=== PATIENT | male | born 1970 | race Caucasian/White ===

== ENCOUNTER → 2020-12-03 | Outpatient (CLI) | payer OTHER ==
--- NOTE | 2020-12-04 00:30 | REP ---
INDICATION: PAIN IN RIGHT HIP COMPARISON: None. TECHNIQUE: AP and frog-lateral views of the right hip FINDINGS: Generalized age-related changes include increased sclerosis to the acetabulum with mild joint space narrowing and subtle marginal spurring. No evidence for acute or healed injury. Thinned linear metallic foreign body measuring approximately 2.4 cm in length consistent foreign body such as needle in the overlying soft tissue at the level of the femoral head/neck. IMPRESSION: Mild generalized age-related changes. Foreign body in the soft tissue overlying the femoral head/neck. <Electronically signed by Felix Conde > 12/04/20 0026
--- NOTE | 2020-12-04 00:35 | REP ---
INDICATION: PAIN IN RIGHT HIP. COMPARISON: None. TECHNIQUE: Single AP view of the pelvis FINDINGS: Mild/moderate degenerative changes at the right hip include increased sclerosis to the acetabular roof mild joint space narrowing and early marginal spurring. Left hip replacement. Linear foreign body overlies the right femoral head/neck. IMPRESSION: Mild/moderate degenerative changes to the right hip. <Electronically signed by Felix Conde > 12/04/20 0031
== END ==
LOC: M SOG 13:42
PROVIDERS: ATTEND Orthopaedic Surgery Adult Reconstructive Orthopaedic Surgery
DX: M25.551 Pain in right hip (principal); M16.11 Unilateral primary osteoarthritis, right hip

== ENCOUNTER → 2020-12-05 | Outpatient (CLI) | payer OTHER, SELFPAY | LOC: M LABSMTC 13:08 | PROVIDERS: ATTEND Anesthesiology | DX: Z01.812 Encounter for preprocedural laboratory examination (principal); Z20.822 Contact with and (suspected) exposure to COVID-19 ==

== ENCOUNTER 2021-01-19 13:37 | Outpatient (RCR) | payer OTHER | END 2021-01-20 | LOC: M PT 13:37 | PROVIDERS: ATTEND Orthopaedic Surgery Adult Reconstructive Orthopaedic Surgery | DX: Z01.818 Encounter for other preprocedural examination (principal) ==

== ENCOUNTER → 2021-02-10 | Outpatient (CLI) | payer OTHER ==
--- NOTE | 2021-02-10 14:31 | REP ---
INDICATION: RT HIP OA. COMPARISON: Radiographs 12/03/2020, MRI 12/18/2020. TECHNIQUE: Axial CT pelvis and knees with sagittal and coronal reconstruction images, per [facility] protocol. FINDINGS: The pelvis and hips demonstrate no evidence of fracture or dislocation. There is moderate degenerative disc change at L4-5 and L5-S1. Left total hip arthroplasty is in good position with no adjacent surrounding osseous abnormality. There is heterotopic calcification in the soft tissues along the superior aspect of the greater trochanter. Moderate degenerative joint disease is seen at the right hip joint with subchondral sclerosis and cystic change. There is minor medial joint space narrowing at the knee joints bilaterally. Mild patellofemoral compartment narrowing bilaterally as well. IMPRESSION: Degenerative changes as above. <Electronically signed by Stephon Moya > 02/10/21 [id number]
== END ==
LOC: M RAD 13:07
PROVIDERS: ATTEND Orthopaedic Surgery Adult Reconstructive Orthopaedic Surgery
DX: M16.11 Unilateral primary osteoarthritis, right hip (principal)

== ENCOUNTER → 2021-02-19 | Outpatient (CLI) | payer OTHER | LOC: M LABSMTC 09:34 | PROVIDERS: ATTEND Anesthesiology | DX: Z01.818 Encounter for other preprocedural examination (principal); Z11.52 Encounter for screening for COVID-19 ==

== ENCOUNTER 2021-02-24 09:05 | Inpatient (IN) | payer OTHER ==
[~2021-02-24] VITALS: Ht 177.8 cm; Wt 81.0 kg
[~2021-02-24 09:05] MED LIST: ACETAMINOPHEN 500 MG TAB PO ONE; LIDOCAINE 1% MDV 20ML VIAL SQ PRN; LR 1,000 ML IV ONE; NAPROXEN 250 MG TAB PO ONE; NS 1,000 ML IV ONE; PREGABALIN 25 MG CAP (LYRICA) PO ONE; ROPIVA 125MG/EPINEPH 0.25MG/CLONID 40MCG/KETOR 15MG IN NS 50ML SYRINGE PA ONE; TRANEXAMIC ACID INJection 1,000 MG in NS 50 ML IV ONE; ceFAZolin SOD 2 GM in IV 1 EA IV ONE; dexameTHASONE 4 MG/ML 1ML VIAL (J1100 PER 1MG) IV ONE
[2021-02-24] MEDS ORDERED: fentaNYL 100 MCG/2 ML INJECTION (J3010) As Ordered ONE ×2 (09:13→13:08)
[2021-02-24] MEDS ORDERED: dexameTHASONE 4 MG/ML 1ML VIAL (J1100 PER 1MG) As Ordered ONE ×2 (09:13→11:19)
[2021-02-24] MEDS ORDERED: propofoL 200 MG/20 ML VIAL As Ordered ONE ×5 (09:13→13:47)
[2021-02-24] MEDS ORDERED: MIDAZOLAM INJ 2MG/2ML VIAL (J2250 PER 1MG) As Ordered ONE ×2 (09:13→11:59)
[2021-02-24] MEDS ORDERED: LIDOCAINE 2% 100MG/5ML SDV (FOR ANES.) As Ordered ONE (09:13)
[2021-02-24] MEDS ORDERED: ONDANSETRON 4MG/2ML VIAL As Ordered ONE (09:14)
[2021-02-24] MEDS ORDERED: ROCURONIUM BROMIDE 50 MG/5 ML VIAL As Ordered ONE (09:14)
[2021-02-24] MEDS ORDERED: SUGAMMADEX SODIUM 500 MG/5 ML VIAL (BRIDION) As Ordered ONE (09:48)
[2021-02-24] MEDS ORDERED: TRANEXAMIC ACID 100 MG/ML 10ML VIAL As Ordered ONE (10:34)
[2021-02-24] MEDS ORDERED: ePHEDrine SULFATE 25 MG/5 ML(5MG/ML) SYRINGE As Ordered ONE (11:46)
[2021-02-24] MEDS ORDERED: METOCLOPRAMIDE INJ 10MG/2ML VIAL (J2765 PER 1) As Ordered ONE (12:42)
--- NOTE | 2021-02-24 15:02 | ROOPDOC ---
[facility] Report Of Operation Report of Operation DATE OF PROCEDURE: 02/24/21 PREPROCEDURE DIAGNOSES: Right hip cystic degeneration possible avascular necrosis POSTPROCEDURE DIAGNOSES: Right hip cystic degeneration, possible avascular PROCEDURE PERFORMED: [facility] right total hip SURGEON: Kathleen Magaña MD ICD 10 modifier 22:50% more time and 50% more physical effort were utilized during this procedure as a result of the patient's musculature and the fact that he did not have any significant degenerative changes and there was difficulty with removal and dislocation of the hip. The patient also had additional reaming procedures performed to the femoral canal as the broach was getting caught up distally leading to toggling of the stem. CARBURETOR REPAIRER: Anjelica Antonio PA-C ANESTHESIA: Spinal. ESTIMATED BLOOD LOSS: Approximately 250 mL. COMPLICATIONS: No known complications associated with surgery. Patient was coughing during the procedure and anesthesia did mention some concern about possible aspiration. This was relayed to the hospitalist service for their admission REMARKS: Patient was seen in the preoperative area and the right lower extremity marked. Prior to surgical intervention the [facility] plan was reviewed and adjust ed.. FINDINGS: Right hip with no significant osteoarthritic change. Procedure done for large cystic area in the subchondral bone seen on MRI SPECIMENS REMOVED: None PROCEDURE NOTE: Components: Mcalister Trident 2 titanium acetabular shell size 52 mm Accolade 2 size # 4 femoral stem MDM liner 28 mm inner diameter Ceramic femoral head 28 mm standard 0 DESCRIPTION OF PROCEDURE: The patient was brought to the operating room and a surgical pause was carried out. The patient was then positioned for a spinal anesthetic which was carried out. The patient was then positioned in the left lateral decubitus position for the right total hip arthroplasty. Appropriate padding was carried out including an axillary roll. Patient was secured with the Stulberg positioning system. The patient and underwent a chlorhexidine wash of the right lower extremity followed by 2 times alcohol wash and then 1 hydrogen peroxide wash. 2 standard sterile chlorhexidine preps were carried out utilizing the [facility]. The patient was then prepped and draped in the standard fashion. A surgical pause was carried out and a surgical safety checklist was completed. The modified Aleman approach was utilized for the lateral skin incision. Skin and subcutaneous tissues were incised down to the fascia. The fascia was split. This was retracted to expose the abductors. The abductors and capsule were elevated using electrocautery in a single layer. Hohmann retractors were placed to help with visualization. Once the proximal femur had been skeletonized the soft tissue, the iliac crest array was placed using 3 pins for the [facility] system. The checkpoint for the greater trochanter was then placed. The right lower extremity was then registered. The hip was dislocated. As a result of the patient's musculature and the fact that he did not have any significant degenerative change this was a difficult process and relied on the assistance of the Maravilla to help sever the ligamentum teres and lever the femoral head out. The labrum was removed with electrocautery and other soft tissues to help with exposure. Electrocautery was used for hemostasis throughout the procedure. The patient did have several bleeders that had to be cauterized which added several minutes to the case. The acetabular checkpoint was then placed. The pelvis and acetabular cup was then registered using the Clickyreserva robot. The robot was then brought in for appropriate reaming as per the preoperative plan. A 52 mm cup was reamed. Reaming was difficult due to the good quality of the patient's bone given his young age and no significant degenerative change some of the reamings were placed in the fovea of the acetabulum for autologous bone grafting. Additional soft tissue was removed from the acetabulum using electrocautery. The Clickyreserva robot was then used to impact the cup at the preplanned version and abduction angle. This was seated appropriately. The dual mobility liner was then impacted without difficulty and check to ensure it was secured. The patient then had the leg placed in the bag with a femoral elevator and a Rodolfo elevating the proximal femur. Electrocautery was used to free up soft tissue at the posterior lateral aspect of the femur. A rongeur and then a box osteotome were used to open up the femoral canal followed by the canal finder. Broaching then occurred up to a size 4. This was toggling of bed so reaming with the secure fit 9/10 reamer was sequentially performed. The 4 was then placed without any toggle this was trialed with the standard head and neck and found to have appropriate tensioning, leg length and offset as well as a good stable range of motion. This was trialed and the leg was taken through stable range of motion without any risk of dislocation being noted. The final components were assembled. The stem was inserted. The trunnion was cleansed with normal sterile saline and dried and then the dual mobility had was impacted. This was then reduced and taken through a full stable range of motion. Wound was irrigated and tranexamic acid was allowed to sit for 3 minutes. The wound also had Betadine soaking in it. The layered closure then occurred with #1 Vicryl closure deep followed by #1 Vicryl and strata fix for the abductors and then #1 Vicryl and strata fix for the fascia. The subcutaneous layer was closed with interrupted #1 Vicryl followed by running 2.0 Vicryl followed by three-point 0 Monocryl. Normal sterile saline and Betadine washes were carried out in between layers. The stab wounds for the iliac crest array were irrigated with normal sterile saline and painted with Betadine before closure with three-point 0 Monocryl. The wound was sealed with Steri-Strips followed by Telfa and Tegaderm for the iliac crest dressing and a Mepilex dressing for the Aleman incision. The patient was taken to the recovery room stable with no known complications The patient will be admitted to the hospitalist service. Anticipate discharge p ostop day 1 if there are no issues. Physical therapy to mobilize. Discharge Instructions Total Hip Arthroplasty 1. Pain: You may take oxycodone as prescribed for pain. Supplement with Naproxen as needed. Ice pack to operative hip as tolerated. 2. Wound care: Remove lateral head dressing on postop day 7. The iliac crest pin site dressing can be changed every 3 days with Telfa and Tegaderm. call [phone] with any questions or concerns. Hygiene: The patient may shower. No tub baths. Check dressing seal prior to bathing. 3. Activity: WBAT right lower extremity. Front wheeled walker versus crutches for ambulation. Fall precautions. Anterolateral hip precautions (NO figure of 4/crossing legs, combined external rotation/extension, combined internal rotatio n/abduction). 4. Driving: No driving until cleared by your surgeon. Do not drive if taking narcotic pain medications as these may make you drowsy. 5. DVT Prophylaxis: Continue taking aspirin 81 mg p.o. twice daily as prescribed for the prevention of blood clots. Ankle pumps every 1 hour while awake. KAROLINA hose at all times for 1 month after surgery. May remove for hygiene and wound c are. 6. Placement: Plan is to discharge patient to home with home health including nursing and physical therapy. 7. Surgeon Follow-up: The patient is scheduled to be seen in Dr. Magaña's office 2 weeks post op with xrays. 8. Primary care Follow-up: Please see your primary care provider in the next 2 to 5 weeks for general medical re-evaluation and medication review. 9. Labs: CBC without differential and BMP to be drawn on postop day 3 with results to PCP and please fax to [phone]. 10. Please contact [facility] if you have any questions or concerns at [phone]. KATHLEEN MAGAÑA MD Feb 24, 2021 15:02
--- NOTE | 2021-02-24 15:05 | REP ---
INDICATION: POST OP IN PACU/ LOW SET AP PELVIS. RT HIP PROSTHESIS Physical examination suggesting congenital hip dysplasia. COMPARISON: None. TECHNIQUE: Single AP view of the pelvis. FINDINGS: Limited evaluation of the pelvis demonstrates postsurgical changes involving the right hip with satisfactory appearance to the prosthesis and overlying soft tissue swelling and subcutaneous emphysema. Left hip demonstrates stable old prosthesis. IMPRESSION: Status post right hip replacement. <Electronically signed by Felix Conde > 02/24/21 [id number]
[2021-02-24] MEDS ORDERED: LR 1,000 ML IV SCH ×2 (15:10→16:05)
[2021-02-24] MEDS ORDERED: fentaNYL 100 MCG/2 ML INJECTION (J3010) IV PRN (15:10)
[2021-02-24] MEDS ORDERED: ONDANSETRON 4MG/2ML VIAL IV PRN ×2 (15:10→15:20)
[2021-02-24] MEDS: oxyCODONE 5MG TAB PO PRN ×2 (15:14→15:47)
[2021-02-24] MEDS ORDERED: SENNA 8.6 MG TAB (SENOKOT) PO PRN (15:20)
[2021-02-24] MEDS ORDERED: oxyCODONE 5MG TAB PO PRN ×2 (15:20)
[2021-02-24] MEDS ORDERED: CHLORASEPTIC SPRAY MT PRN (15:45)
--- NOTE | 2021-02-24 15:59 | HPEPDOC ---
General Date of Admission February 24, 2021 Date of Service: Feb 24, 2021 Chief Complaint The patient is a 50-year-old male admitted with a reason for visit of Right Hip Osteoarthritis. History of Present Illness Mr. Licea is a 50-year-old male with hemochromatosis who is here for elective right hip total arthroplasty for right hip osteonecrosis and osteoarthritis. Patient was seen postoperatively. Prior to surgery, he denied any fever or chills, chest pain, dyspnea, abdominal pain, diarrhea, or dysuria. He also denied any sore throat. During induction, patient had nausea and vomiting. During operation, he had coughing. Patient was seen in the PACU post operatively. He is alert and denies any nausea or vomiting. He was surprised to hear that he vomited prior. Only other complaint was sore throat. Patient is doing well on room air. Patient will be admitted for postop monitoring and physical therapy. Home Medications No Active Prescriptions or Reported Meds Allergies Coded Allergies: No Known Allergies (Unverified , 12/02/20) Past Medical History Medical History 1. Hemochromatosis Surgical History 1. Rhinoplasty 2. Shrapnel metal removal 3. Liver biopsy x2 4. Job reconstructive surgery 5. Laser eye surgery 6. Left hip surgery Family History Father: at the age of 65, heart attack Mother: To patient's knowledge, she is healthy without medical history Brother: History of metastatic cancer to bone, at the age of 57 Social History * Smoker: Denies Alcohol: Denies Drugs: denies A-FIB/CHADSVASC A-FIB History Current/History of A-Fib/PAF?: No Review of Systems Constitutional: Denies: Chills, Fever Eyes: Denies: Vision change ENT: Reports: Sore Throat (Postop) Skin: Denies: Rash Pulmonary: Denies: Dyspnea Cardiovascular: Denies: Chest Pain Gastrointestinal: Denies: Nausea, Abdominal Pain, Diarrhea Genitourinary: Denies: Dysuria Hematologic: Denies: Bruising Psych: Denies: Anxiety, Depression Physical Examination General Exam: Positive: Alert, Cooperative Eye Exam: Positive: EOMI; Negative: Sclera icteric ENT Exam: Positive: Atraumatic Neck Exam: Positive: Supple Chest Exam: Positive: Clear to auscultation Heart Exam: Positive: Rate Normal, Regular Rhythm Abdomen Exam: Positive: Normal bowel sounds, Soft; Negative: Tenderness Extremity Exam: Negative: Edema Neuro Exam: Positive: Cranial Nerves 3-12 NL Psych Exam: Positive: Mental status NL, Mood NL Vital Signs Vital Signs Date Time Temp Pulse Resp B/P (MAP) Pulse Ox O2 Delivery O2 Flow Rate FiO2 02/24/21 15:47 18 02/24/21 15:43 64 121/73 (89) 96 Room Air 02/24/21 15:17 97.5 Assessment/Plan Mr. Licea is a 50-year-old male with hemochromatosis who is here for elective right hip total arthroplasty for right hip osteonecrosis and osteoarthritis. Dr. Hairston performed the procedure on 02/24/2021. Prior to operation, patient had nausea and vomiting. Postoperatively, denies any nausea. He is doing well at room air. Plan / VTE VTE Prophylaxis Ordered?: Yes Plan Plan 1. Right hip osteoarthritis and right hip osteonecrosis Status post total right hip arthroplasty DVT prophylaxis per orthopedic surgery PT/OT ordered 2. Hemochromatosis We will check CBC 3. DVT prophylaxis Per orthopedic surgery, aspirin 81 mg twice daily Disposition: Pending physical therapy TANO MOSELEY DO Feb 24, 2021 15:59
[2021-02-24 16:10] VITALS: BP 108/68
[2021-02-24 16:37] LABS: HEMATOCRIT 35.4 % (42.0-52.0); HEMOGLOBIN 12.4 g/dl (13.5-17.5); MEAN CORPUSCULAR HEMOGLOBIN 32.4 pg (27.0-33.0); MEAN CORPUSCULAR VOLUME 92.4 fl (80.0-96.0); PLATELET COUNT, AUTOMATED 188 10^3/uL (150-450); RED BLOOD COUNT 3.83 10^6/uL (4.30-6.10); WHITE BLOOD COUNT 13.5 10^3/uL (4.0-10.0)
[2021-02-24 16:40] VITALS: BP 105/69
[2021-02-24 16:47] LABS: INR 1.09; PROTHROMBIN TIME 14.5 SECONDS (12.7-14.5)
[2021-02-24 17:13] LABS: ALBUMIN 3.3 GM/DL (3.2-5.2); ALT/SGPT 72 U/L (12-78); BILIRUBIN,TOTAL 0.5 MG/DL (0.2-1.0); BLOOD UREA NITROGEN 12 MG/DL (7-18); CALCIUM LEVEL 8.9 MG/DL (8.5-10.1); CARBON DIOXIDE LEVEL 25 MEQ/L (21-32); CHLORIDE LEVEL 105 MEQ/L (98-107); CREATININE FOR GFR 0.98 MG/DL (0.70-1.30); GLOMERULAR FILTRATION RATE > 60.0 (>56); GLUCOSE, FASTING 179 MG/DL (70-100); POTASSIUM SERUM 3.8 MEQ/L (3.5-5.1); SODIUM LEVEL 137 MEQ/L (136-145); TOTAL PROTEIN 6.1 GM/DL (6.4-8.2)
[2021-02-24 18:36] VITALS: BP 135/74
[2021-02-24] MEDS: ceFAZolin SOD 2 GM in IV 1 EA IV SCH (18:39)
[2021-02-24] MEDS: traMADol 50 MG TAB PO PRN (18:39)
[2021-02-24] MEDS: NAPROXEN 250 MG TAB PO SCH (20:50)
[2021-02-24] MEDS: DOCUSATE SODIUM 100MG CAPSULE PO SCH (20:50)
[2021-02-24 21:00] VITALS: O2SAT 95
[2021-02-24 22:00] VITALS: BP 124/66
[2021-02-25 02:00] VITALS: BP 94/66
[2021-02-25] MEDS: ceFAZolin SOD 2 GM in IV 1 EA IV SCH (03:14)
[2021-02-25 06:00] VITALS: BP 115/67
[2021-02-25] MEDS: traMADol 50 MG TAB PO PRN (06:38)
[2021-02-25 07:10] LABS: BASO % 0.2 % (0.0-1.0); HEMOGLOBIN 11.9 g/dl (13.5-17.5); LYMPH # 1.4 10^3/uL (1.5-5.0); LYMPH % 8.6 % (24.0-44.0); MEAN CORPUSCULAR HEMOGLOBIN 32.4 pg (27.0-33.0); MEAN CORPUSCULAR VOLUME 92.6 fl (80.0-96.0); MONO # 1.4 10^3/uL (0.0-0.8); MONO % 8.6 % (2.0-8.0); NEUTROPHILS # 13.3 10^3/uL (1.5-8.5); NEUTROPHILS % 82.2 % (36.0-66.0); PLATELET COUNT, AUTOMATED 212 10^3/uL (150-450); RED BLOOD COUNT 3.67 10^6/uL (4.30-6.10); WHITE BLOOD COUNT 16.1 10^3/uL (4.0-10.0)
[2021-02-25 07:44] LABS: BLOOD UREA NITROGEN 14 MG/DL (7-18); CALCIUM LEVEL 8.4 MG/DL (8.5-10.1); CARBON DIOXIDE LEVEL 23 MEQ/L (21-32); CHLORIDE LEVEL 108 MEQ/L (98-107); CREATININE FOR GFR 0.99 MG/DL (0.70-1.30); GLOMERULAR FILTRATION RATE > 60.0 (>56); GLUCOSE, FASTING 133 MG/DL (70-100); POTASSIUM SERUM 3.9 MEQ/L (3.5-5.1); SODIUM LEVEL 137 MEQ/L (136-145)
[2021-02-25] MEDS ORDERED: FERROUS SULFATE 325MG TAB PO SCH (09:00)
[2021-02-25] MEDS ORDERED: ASPIRIN 81MG ENTERIC TABLET PO SCH (09:00)
[2021-02-25] MEDS ORDERED: ASCORBIC ACID 500 MG TAB PO SCH (09:00)
[2021-02-25] MEDS: DOCUSATE SODIUM 100MG CAPSULE PO SCH (09:39)
[2021-02-25] MEDS: NAPROXEN 250 MG TAB PO SCH (09:40)
[2021-02-25 10:00] VITALS: BP 121/81
[2021-02-25] MEDS ORDERED: OXYC-517 PO (10:07)
[2021-02-25] MEDS ORDERED: NAPR-849 PO (10:07)
[2021-02-25] MEDS ORDERED: TRAM50TA2 PO (10:07)
[2021-02-25] MEDS ORDERED: ASPI-551 PO (10:07)
[2021-02-25] MEDS ORDERED: DOCU100C16 PO (10:07)
[2021-02-25] MEDS ORDERED: ACET-683 PO (10:12)
--- NOTE | 2021-02-25 11:29 | IPNPDOC ---
Text Note Date of Service The patient was seen on 02/25/21. NOTE Postop day 1 for right total hip arthroplasty. Patient states that he is doing well. Denies any chest pain or shortness of breath. Denies any cough. Has a little bit of a sore throat. Pain is manageable to the right hip. He has been up and moving with limited weightbeari ng utilizing the walker. Right hip iliac crest and right hip arthrotomy dressing intact with no signs of staining or drainage. Grossly neurovascularly intact to light touch to the right foot. Moving toes foot and ankle and has palpable posterior tibial and dorsalis pedis pulses. X-ray imaging was independently ordered and reviewed by myself. This was done in the recovery room. This demonstrates right total hip arthroplasty prosthesis in good position without any obvious signs of complication subsidence or periprosthetic fracture. The patient states that the oxycodone pain medication is not helping that much. I have advised him that oxycodone is ordered. I have spoken to the nursing staff to ensure that he is switched to the oxycodone and has a prescription for oxycodone for pain medication upon discharge. Overall the patient is doing quite well. He will be seen by the hospitalist service and physical therapy. Anticipate discharge home today. Follow-up in 2 weeks in the clinic Discharge Instructions Total Hip Arthroplasty 1. Pain: You may take oxycodone as prescribed for pain. Supplement with Naproxen as needed. Ice pack to operative hip as tolerated. 2. Wound care: Remove dressing on postop day 7. Call [phone] with any questions or concerns. Hygiene: The patient may shower. No tub baths. Check dressing seal prior to bathing. 3. Activity: WBAT right lower extremity. Front wheeled walker versus crutches for ambulation. Fall precautions. Anterolateral hip precautions (NO figure of 4/crossing legs, combined external rotation/extension, combined internal rota tion/abduction). 4. Driving: No driving until cleared by your surgeon. Do not drive if taking narcotic pain medications as these may make you drowsy. 5. DVT Prophylaxis: Continue taking aspirin 81 mg p.o. twice daily as prescribed for the prevention of blood clots. Ankle pumps every 1 hour while awake. KAROLINA hose at all times for 1 month after surgery. May remove for hygiene and wound care. 6. Placement: Plan is to discharge patient to home with home health including nursing and physical therapy. 7. Surgeon Follow-up: The patient is scheduled to be seen in Dr. Magaña's office 2 weeks post op with xrays. 8. Primary care Follow-up: Please see your primary care provider in the next 2 to 5 weeks for general medical re-evaluation and medication review. 9. Labs: CBC without differential to be drawn on postop day 3 with results to PCP and please fax to [phone]. 10. Please contact [facility] if you have any questions or concerns at [phone]. VS,Fishbone, I+O VS, Fishbone, I+O Laboratory Tests 02/24/21 16:25 02/25/21 06:49 Vital Signs Date Time Temp Pulse Resp B/P (MAP) Pulse Ox O2 Delivery O2 Flow Rate FiO2 02/25/21 10:11 18 02/25/21 10:00 98.7 74 121/81 (94) 95 Room Air I&O- Last 24 Hours up to 6 AM 02/25/21 06:00 Intake Total 2755 ml Output Total 1400 ml Balance 1355 ml KATHLEEN MAGAÑA MD Feb 25, 2021 11:29
--- NOTE | 2021-02-25 19:17 | DS.PDOC ---
Discharge Summary General Date of Admission Feb 24, 2021 at 15:44 Date of Discharge Feb 25, 2021 Specialist/Consultants [facility] Orthopedic surgery, Dr. Hairston Discharge Summary PROCEDURES PERFORMED DURING STAY: [facility] right total hip by Dr. Hairston on 02/24/21 ADMITTING DIAGNOSES: 1. Right hip osteoarthritis, possibly avascular 2. Hematochromatosis DISCHARGE DIAGNOSES: 1. Right hip osteoarthritis, possibly avascular 2. Hematochromatosis COMPLICATIONS/CHIEF COMPLAINT: Right Hip Osteoarthritis. HISTORY OF PRESENT ILLNESS: Mr. Licea is a 50-year-old male with hemochromatosis who is here for elective right hip total arthroplasty for right hip osteonecrosis and osteoarthritis. Patient was seen postoperatively. Prior to surgery, he denied any fever or chills, chest pain, dyspnea, abdominal pain, diarrhea, or dysuria. He also denied any sore throat. During induction, patient had nausea and vomiting. During operation, he had coughing. Patient was seen in the PACU postoperatively. He is alert and denies any nausea or vomiting. He was surprised to hear that he vomited prior. Only other complaint was sore throat. Patient is doing well on room air. Patient will be admitted for postop monitoring and physical therapy. HOSPITAL COURSE: Patient did well overnight and cleared physical therapy this morning. Patient recovered faster than expected. He felt well and denied any chest pain or dyspnea. He felt ready for home and was subsequently discharged home. DISCHARGE MEDICATIONS: Please see below. ALLERGIES: Please see below. PHYSICAL EXAMINATION ON DISCHARGE: VITAL SIGNS: Please see below. GENERAL: Comfortable, in no apparent distress HEENT: Head normocephalic, atraumatic NECK: Supple CARDIOVASCULAR EXAMINATION: Regular rate and rhythm RESPIRATORY EXAMINATION: Lungs clear to auscultation bilaterally ABDOMINAL EXAMINATION: Soft, non-tender, normal bowel sounds EXTREMITIES: No pitting edema bilaterally SKIN: Warm and dry NEUROLOGICAL EXAMINATION: CN 3-12 grossly intact PSYCHIATRIC EXAMINATION: Normal mood and affect LABORATORY DATA: Please see below. IMAGING: Please see radiologist report PROGNOSIS: Good ACTIVITY: As tolerated. DIET: As tolerated DISCHARGE PLAN: Home DISPOSITION: 01 Home, Self-Care. DISCHARGE INSTRUCTIONS: 1. Follow up with PCP in 1 week 2. Follow up with general surgery in 2 week 3. Take aspirin 81mg BID for post operative DVT ppx ITEMS TO FOLLOWUP ON ON OUTPATIENT: 1. CBC DISCHARGE CONDITION: Stable Total time spent on discharge planning, discharge summary, and medication reconciliation: 35 minutes Vital Signs/I&Os Vital Signs Date Time Temp Pulse Resp B/P (MAP) Pulse Ox O2 Delivery O2 Flow Rate FiO2 02/25/21 10:11 18 02/25/21 10:00 98.7 74 121/81 (94) 95 Room Air I&O- Last 24 Hours up to 6 AM 02/25/21 06:00 Intake Total 2755 ml Output Total 1400 ml Balance 1355 ml Laboratory Data Labs 24H Laboratory Tests 2 02/25/21 06:49: Immature Granulocyte % (Auto) 0.4, Neutrophils (%) (Auto) 82.2H, Lymphocytes (%) (Auto) 8.6L, Monocytes (%) (Auto) 8.6H, Eosinophils (%) (Auto) 0.0, Basophils (%) (Auto) 0.2, Neutrophils # (Auto) 13.3H, Lymphocytes # (Auto) 1.4L, Monocytes # (Auto) 1.4H, Eosinophils # (Auto) 0.0, Basophils # (Auto) 0.0, Nucleated Red Blood Cells % (auto) 0.0, Anion Gap 6L, Glomerular Filtration Rate > 60.0, Calcium Level 8.4L CBC/BMP Laboratory Tests 02/25/21 06:49 Discharge Medications Scheduled Acetaminophen (Acetaminophen) 500 Mg Tablet, 1,000 MG PO TID Aspirin (Aspirin EC) 81 Mg Tablet.dr, 81 MG PO BID Docusate Sodium (Docusate Sodium) 100 Mg Capsule, 100 MG PO BID Scheduled PRN Oxycodone HCl (Oxycodone HCl) 5 Mg Tablet, 5 MG PO Q6HP PRN for MODERATE PAIN (PS 5-8) Tramadol HCl (Tramadol HCl) 50 Mg Tablet, 50 MG PO Q6HP PRN for MILD PAIN (PS 1- 4) Allergies Coded Allergies: No Known Allergies (Unverified , 12/02/20) TANO MOSELEY DO Feb 25, 2021 19:17
[2021-02-26] MEDS ORDERED: FLUBLOK(EGG FREE)(QUAD)INFLUENZA VACC 0.5ML SYRINGE 18YRS & OLDER IM ONE (09:00)
== END 2021-02-25 11:55 | disposition home health service (06) | DRG 470 ==
LOC: M SDC 09:05 → M MS5PR 15:44
PROVIDERS: ADMIT Internal Medicine; ATTEND Internal Medicine
PROC: 8E0Y0CZ Robotic Assisted Procedure of Lower Extremity, Open Approach (ICD-10-PCS; 2021-02-24)
PROC: 0SR903A Replacement of Right Hip Joint with Ceramic Synthetic Substitute, Uncemented, Open Approach (ICD-10-PCS; principal; 2021-02-24 10:45)
DX: M16.11 Unilateral primary osteoarthritis, right hip (principal); M87.851 Other osteonecrosis, right femur; M85.651 Other cyst of bone, right thigh; E83.119 Hemochromatosis, unspecified

== ENCOUNTER → 2021-03-01 | Outpatient (REF) | payer OTHER ==
[~2021-03-01] MED LIST changes: +ACET-683 PO; -ACETAMINOPHEN 500 MG TAB PO ONE; +ASPI-551 PO; +DOCU100C16 PO; -LIDOCAINE 1% MDV 20ML VIAL SQ PRN; -LR 1,000 ML IV ONE; +NAPR-849 PO; -NAPROXEN 250 MG TAB PO ONE; -NS 1,000 ML IV ONE; +OXYC-517 PO; -PREGABALIN 25 MG CAP (LYRICA) PO ONE; -ROPIVA 125MG/EPINEPH 0.25MG/CLONID 40MCG/KETOR 15MG IN NS 50ML SYRINGE PA ONE; +TRAM50TA2 PO; -TRANEXAMIC ACID INJection 1,000 MG in NS 50 ML IV ONE; -ceFAZolin SOD 2 GM in IV 1 EA IV ONE; -dexameTHASONE 4 MG/ML 1ML VIAL (J1100 PER 1MG) IV ONE
[2021-03-01 11:47] LABS: HEMATOCRIT 36.6 % (42.0-52.0); HEMOGLOBIN 12.6 g/dl (13.5-17.5); MEAN CORPUSCULAR HEMOGLOBIN 32.5 pg (27.0-33.0); MEAN CORPUSCULAR HGB CONC 34.4 g/dl (32.0-36.5); MEAN CORPUSCULAR VOLUME 94.3 fl (80.0-96.0); PLATELET COUNT, AUTOMATED 250 10^3/uL (150-450); RED BLOOD COUNT 3.88 10^6/uL (4.30-6.10)
[2021-03-01 12:10] LABS: BLOOD UREA NITROGEN 12 MG/DL (7-18); CALCIUM LEVEL 8.7 MG/DL (8.5-10.1); CARBON DIOXIDE LEVEL 30 MEQ/L (21-32); CHLORIDE LEVEL 99 MEQ/L (98-107); CREATININE FOR GFR 0.88 MG/DL (0.70-1.30); GLOMERULAR FILTRATION RATE > 60.0 (>56); GLUCOSE, FASTING 108 MG/DL (70-100); POTASSIUM SERUM 3.9 MEQ/L (3.5-5.1); SODIUM LEVEL 136 MEQ/L (136-145)
== END ==
LOC: M LAB REF 10:50
PROVIDERS: ATTEND Orthopaedic Surgery Adult Reconstructive Orthopaedic Surgery
DX: Z00.00 Encounter for general adult medical examination without abnormal findings (principal); D64.9 Anemia, unspecified

== ENCOUNTER → 2021-03-09 | Outpatient (CLI) | payer OTHER ==
--- NOTE | 2021-03-09 11:05 | REP ---
INDICATION: RT ARTIFICIAL HIP COMPARISON: None. TECHNIQUE: AP view of the pelvis with neutral and frog-lateral views of the right hip FINDINGS: Pelvis demonstrates bilateral hip replacement in stable satisfactory appearing position. Residual osseous structures are essentially normal. No evidence for acute or subacute fracture. No subcutaneous emphysema. IMPRESSION: Bilateral hip replacement appear relatively normal. <Electronically signed by Felix Conde > 03/09/21 [id number]
== END ==
LOC: M SOG 08:15
PROVIDERS: ATTEND Orthopaedic Surgery Adult Reconstructive Orthopaedic Surgery
DX: Z96.641 Presence of right artificial hip joint (principal)

== ENCOUNTER → 2022-03-12 | Outpatient (CLI) | payer OTHER | LOC: M SOG 08:15 | PROVIDERS: ATTEND Orthopaedic Surgery Adult Reconstructive Orthopaedic Surgery | DX: Z96.643 Presence of artificial hip joint, bilateral (principal) ==

== ENCOUNTER 2023-01-22 12:50 | Observation (INO) | payer OTHER ==
[~2023-01-22] VITALS: Ht 177.8 cm; Wt 84.7 kg
[2023-01-22] MEDS ORDERED: MORPHINE 4 MG/ML 1ML VIAL IV ONE (13:20)
[2023-01-22] MEDS ORDERED: BOOSTRIX VACCINE (TETANUS/DIPHTH/ACEL. PERTUSSIS) 0.5ML SYR IM ONE (13:20)
[2023-01-22] MEDS ORDERED: ceFAZolin SOD 2 GM in IV 1 EA IV ONE (13:35)
[2023-01-22] MEDS: MORPHINE 4 MG/ML 1ML VIAL IV PRN ×2 (13:46→15:18)
[2023-01-22] MEDS ORDERED: NS 1,000 ML IV SCH (13:50)
[2023-01-22 14:53] LABS: BASO # 0.1 10^3/uL (0.0-0.2); BASO % 0.5 % (0.0-1.0); EOS # 0.1 10^3/uL (0.0-0.5); EOS % 0.4 % (0.0-3.0); HEMATOCRIT 40.3 % (42.0-52.0); HEMOGLOBIN 14.1 g/dl (13.5-17.5); LYMPH # 1.2 10^3/uL (1.5-5.0); LYMPH % 7.8 % (24.0-44.0); MEAN CORPUSCULAR HEMOGLOBIN 32.3 pg (27.0-33.0); MEAN CORPUSCULAR VOLUME 92.2 fl (80.0-96.0); MONO # 0.7 10^3/uL (0.0-0.8); MONO % 4.7 % (2.0-8.0); NEUTROPHILS # 13.5 10^3/uL (1.5-8.5); NEUTROPHILS % 86.2 % (36.0-66.0); PLATELET COUNT, AUTOMATED 193 10^3/uL (150-450); RED BLOOD COUNT 4.37 10^6/uL (4.30-6.10); WHITE BLOOD COUNT 15.6 10^3/uL (4.0-10.0)
[2023-01-22 15:19] LABS: BLOOD UREA NITROGEN 17 MG/DL (9-23); CALCIUM LEVEL 8.6 MG/DL (8.5-10.1); CARBON DIOXIDE LEVEL 20 MMOL/L (20-31); CHLORIDE LEVEL 103 MMOL/L (98-107); GLOMERULAR FILTRATION RATE > 60.0 (>56); GLUCOSE, FASTING 171 MG/DL (60-100); POTASSIUM SERUM 4.3 MMOL/L (3.5-5.1); SODIUM LEVEL 136 MMOL/L (136-145)
[2023-01-22 15:23] LABS: RSV AMPLIFICATION NEGATIVE (NEGATIVE)
[2023-01-22] MEDS ORDERED: fentaNYL 100 MCG/2 ML INJECTION As Ordered ONE ×3 (16:22→23:29)
[2023-01-22] MEDS ORDERED: MIDAZOLAM INJ 2MG/2ML VIAL As Ordered ONE (16:22)
[2023-01-22] MEDS ORDERED: propofoL 200 MG/20 ML VIAL As Ordered ONE (16:22)
[2023-01-22] MEDS ORDERED: LIDOCAINE 2% 100MG/5ML SDV (FOR ANES.) As Ordered ONE (16:22)
[2023-01-22] MEDS ORDERED: HOME MED LIST COMPLETE! XX SCH (16:45)
[2023-01-22] MEDS ORDERED: TRANEXAMIC ACID 100 MG/ML 10ML VIAL As Ordered ONE ×2 (17:28→18:26)
[2023-01-22] MEDS ORDERED: ROCURONIUM BROMIDE 50MG/5ML VIAL As Ordered ONE ×2 (17:37→19:11)
[2023-01-22] MEDS ORDERED: ceFAZolin 2 GM/D5W 50 ML IV BAG As Ordered ONE ×2 (17:43→21:10)
[2023-01-22] MEDS ORDERED: HYDROmorphone HCL 2MG/ML 1ML VIAL As Ordered ONE (18:01)
[2023-01-22] MEDS ORDERED: ACETAMINOPHEN 1000MG 100ML IV BAG As Ordered ONE (18:06)
[2023-01-22] MEDS ORDERED: KETOROLAC 60MG 2ML VIAL As Ordered ONE (18:34)
[2023-01-22] MEDS ORDERED: ONDANSETRON 4MG 2ML VIAL As Ordered ONE (18:34)
[2023-01-22] MEDS ORDERED: METOCLOPRAMIDE INJ 10MG/2ML VIAL As Ordered ONE (18:34)
[2023-01-22] MEDS ORDERED: SUGAMMADEX SODIUM 500 MG/5 ML VIAL (BRIDION) As Ordered ONE (18:35)
[2023-01-22] MEDS ORDERED: ceFAZolin 2 GM/D5W 50 ML IV BAG ONE (21:10)
[2023-01-22] MEDS ORDERED: DESFLURANE 240 ML INHALANT As Ordered ONE (21:18)
[2023-01-23] VITALS (10 sets, daily range): BP systolic 102–174; BP diastolic 55–102; TEMP 97.3–98.2; O2SAT 93–96
[2023-01-23] MEDS ORDERED: ceFAZolin 2 GM/D5W 50 ML IV BAG ONE (01:32)
[2023-01-23] MEDS ORDERED: ceFAZolin 2 GM/D5W 50 ML IV BAG As Ordered ONE (01:32)
[2023-01-23] MEDS ORDERED: ONDANSETRON 4MG 2ML VIAL As Ordered ONE (01:51)
[2023-01-23] MEDS ORDERED: ACETAMINOPHEN 1000MG 100ML IV BAG As Ordered ONE (01:51)
[2023-01-23] MEDS ORDERED: oxyCODONE 5MG TAB PO PRN (02:30)
[2023-01-23] MEDS ORDERED: ONDANSETRON 4MG 2ML VIAL IV PRN ×2 (02:30→03:05)
[2023-01-23] MEDS ORDERED: HYDROMORPHONE HCL 0.5 MG/ 0.5 ML SYRINGE IV PRN (02:30)
[2023-01-23] MEDS ORDERED: METOCLOPRAMIDE INJ 10MG/2ML VIAL IV PRN (02:30)
[2023-01-23] MEDS ORDERED: fentaNYL 100 MCG/2 ML INJECTION IV PRN (02:30)
[2023-01-23] MEDS ORDERED: LR 1,000 ML IV SCH ×2 (02:30→03:20)
[2023-01-23] MEDS ORDERED: GLUCAGON INJ 1MG VIAL SC PRN (03:05)
[2023-01-23] MEDS ORDERED: GLUCOSE 4GM CHEW TABLET PO PRN (03:05)
[2023-01-23] MEDS ORDERED: ACETAMINOPHEN TAB 650MG DOSE (2X325MG) PO PRN (03:05)
[2023-01-23] MEDS ORDERED: DEXTROSE 50% 50ML SYRINGE IV PRN (03:05)
[2023-01-23] MEDS ORDERED: BISACODYL 10MG SUPP PR PRN (03:05)
[2023-01-23] MEDS: HYDROMORPHONE HCL 0.5 MG/ 0.5 ML SYRINGE IV PRN ×6 (03:41→21:41)
[2023-01-23] MEDS: LR 1,000 ML IV SCH ×3 (03:42→18:00)
[2023-01-23 04:08] LABS: BASO % 0.2 % (0.0-1.0); HEMATOCRIT 33.9 % (42.0-52.0); LYMPH # 0.7 10^3/uL (1.5-5.0); LYMPH % 6.3 % (24.0-44.0); MEAN CORPUSCULAR HEMOGLOBIN 32.1 pg (27.0-33.0); MEAN CORPUSCULAR HGB CONC 34.5 g/dl (32.0-36.5); MEAN CORPUSCULAR VOLUME 92.9 fl (80.0-96.0); MONO # 0.9 10^3/uL (0.0-0.8); MONO % 8.1 % (2.0-8.0); NEUTROPHILS % 85.2 % (36.0-66.0); PLATELET COUNT, AUTOMATED 147 10^3/uL (150-450); RED BLOOD COUNT 3.65 10^6/uL (4.30-6.10); WHITE BLOOD COUNT 10.5 10^3/uL (4.0-10.0)
[2023-01-23 04:18] LABS: HEMOGLOBIN 11.7 g/dl (13.5-17.5)
[2023-01-23 04:20] LABS: HEMOGLOBIN A1c 5.4 % (4.0-6.0)
[2023-01-23 04:30] LABS: ALBUMIN 2.8 G/DL (3.2-5.2); ALKALINE PHOSPHATASE 49 U/L (46-116); ALT/SGPT 44 U/L (7.0-40); AST/SGOT 57 U/L (<34); BILIRUBIN,TOTAL 0.8 MG/DL (0.3-1.2); BLOOD UREA NITROGEN 20 MG/DL (9-23); CALCIUM LEVEL 7.4 MG/DL (8.5-10.1); CARBON DIOXIDE LEVEL 22 MMOL/L (20-31); CHLORIDE LEVEL 107 MMOL/L (98-107); GLOMERULAR FILTRATION RATE > 60.0 (>56); GLUCOSE, FASTING 224 MG/DL (60-100); MAGNESIUM LEVEL 1.7 MG/DL (1.8-2.4); PHOSPHORUS LEVEL 2.7 MG/DL (2.5-4.9); POTASSIUM SERUM 4.3 MMOL/L (3.5-5.1); SODIUM LEVEL 137 MMOL/L (136-145); TOTAL PROTEIN 5.4 G/DL (5.7-8.2)
[2023-01-23] MEDS: AMPICILLIN SOD/SULBACTAM SOD 3 GM in D5W MINI-BAG PLUS 100 ML IV SCH ×4 (05:24→23:55)
[2023-01-23] MEDS: INSULIN LISPRO (NovoLOG) PER UNIT SC SCH ×3 (08:48→17:27)
[2023-01-23] MEDS: ENOXAPARIN 40MG/0.4ML SYRINGE (J1650 PER 10MG) SC SCH (08:49)
[2023-01-23] MEDS: PERCOCET 5MG/325MG TAB PO PRN ×2 (12:34→23:55)
[2023-01-23] MEDS: oxyCODONE 5MG TAB PO PRN (18:25)
[2023-01-23] MEDS ORDERED: INSULIN LISPRO (NovoLOG) PER UNIT SC SCH (21:00)
[2023-01-24] MEDS: HYDROMORPHONE HCL 0.5 MG/ 0.5 ML SYRINGE IV PRN ×4 (00:46→15:21)
[2023-01-24 02:04] VITALS: BP 108/63; TEMP 98.8; O2SAT 91
[2023-01-24] MEDS: LR 1,000 ML IV SCH (02:45)
[2023-01-24] MEDS: oxyCODONE 5MG TAB PO PRN ×3 (02:45→17:54)
[2023-01-24 04:49] VITALS: BP 110/63; TEMP 98.1; O2SAT 95
[2023-01-24] MEDS: AMPICILLIN SOD/SULBACTAM SOD 3 GM in D5W MINI-BAG PLUS 100 ML IV SCH ×3 (05:01→17:26)
[2023-01-24 06:48] LABS: BASO # 0.1 10^3/uL (0.0-0.2); BASO % 0.7 % (0.0-1.0); EOS # 0.2 10^3/uL (0.0-0.5); HEMATOCRIT 29.7 % (42.0-52.0); HEMOGLOBIN 10.1 g/dl (13.5-17.5); LYMPH # 1.4 10^3/uL (1.5-5.0); LYMPH % 15.4 % (24.0-44.0); MEAN CORPUSCULAR HEMOGLOBIN 31.9 pg (27.0-33.0); MEAN CORPUSCULAR VOLUME 93.7 fl (80.0-96.0); MONO # 0.7 10^3/uL (0.0-0.8); MONO % 7.9 % (2.0-8.0); NEUTROPHILS # 6.5 10^3/uL (1.5-8.5); NEUTROPHILS % 73.5 % (36.0-66.0); PLATELET COUNT, AUTOMATED 122 10^3/uL (150-450); RED BLOOD COUNT 3.17 10^6/uL (4.30-6.10); WHITE BLOOD COUNT 8.8 10^3/uL (4.0-10.0)
[2023-01-24 07:08] LABS: BLOOD UREA NITROGEN 12 MG/DL (9-23); CALCIUM LEVEL 7.4 MG/DL (8.5-10.1); CARBON DIOXIDE LEVEL 28 MMOL/L (20-31); CHLORIDE LEVEL 103 MMOL/L (98-107); CREATININE FOR GFR 0.74 MG/DL (0.70-1.30); GLOMERULAR FILTRATION RATE > 60.0 (>56); GLUCOSE, FASTING 113 MG/DL (60-100); IRON (FE) 23 UG/DL (65-175); MAGNESIUM LEVEL 1.7 MG/DL (1.8-2.4); PERCENT SATURATION 13.8 % (19.7-50.0); POTASSIUM SERUM 3.6 MMOL/L (3.5-5.1); SODIUM LEVEL 136 MMOL/L (136-145); TOTAL IRON BINDING CAPACITY 167 UG/DL (250-425)
[2023-01-24 07:11] LABS: FERRITIN 574.7 NG/ML (10.5-307.3)
[2023-01-24] MEDS: PERCOCET 5MG/325MG TAB PO PRN ×2 (07:23→13:48)
[2023-01-24] MEDS: INSULIN LISPRO (NovoLOG) PER UNIT SC SCH (07:30)
[2023-01-24] MEDS: ENOXAPARIN 40MG/0.4ML SYRINGE (J1650 PER 10MG) SC SCH (08:42)
[2023-01-24 14:00] VITALS: BP 126/78; TEMP 98.1; O2SAT 95
[2023-01-24 21:02] VITALS: BP 127/80; TEMP 97.9; O2SAT 93
[2023-01-25] MEDS: oxyCODONE 5MG TAB PO PRN ×4 (00:11→18:36)
[2023-01-25] MEDS: AMPICILLIN SOD/SULBACTAM SOD 3 GM in D5W MINI-BAG PLUS 100 ML IV SCH ×4 (00:12→18:35)
[2023-01-25 05:26] VITALS: BP 126/82; TEMP 98.1; O2SAT 94
[2023-01-25 07:03] LABS: BASO # 0.1 10^3/uL (0.0-0.2); BASO % 0.6 % (0.0-1.0); EOS # 0.6 10^3/uL (0.0-0.5); EOS % 6.5 % (0.0-3.0); HEMATOCRIT 30.6 % (42.0-52.0); HEMOGLOBIN 10.6 g/dl (13.5-17.5); LYMPH # 1.4 10^3/uL (1.5-5.0); LYMPH % 16.7 % (24.0-44.0); MEAN CORPUSCULAR HEMOGLOBIN 32.2 pg (27.0-33.0); MEAN CORPUSCULAR HGB CONC 34.6 g/dl (32.0-36.5); MONO # 0.6 10^3/uL (0.0-0.8); NEUTROPHILS # 5.8 10^3/uL (1.5-8.5); NEUTROPHILS % 68.6 % (36.0-66.0); PLATELET COUNT, AUTOMATED 143 10^3/uL (150-450); RED BLOOD COUNT 3.29 10^6/uL (4.30-6.10); WHITE BLOOD COUNT 8.4 10^3/uL (4.0-10.0)
[2023-01-25 07:21] LABS: BLOOD UREA NITROGEN 9 MG/DL (9-23); CARBON DIOXIDE LEVEL 28 MMOL/L (20-31); CHLORIDE LEVEL 103 MMOL/L (98-107); CREATININE FOR GFR 0.73 MG/DL (0.70-1.30); GLOMERULAR FILTRATION RATE > 60.0 (>56); GLUCOSE, FASTING 116 MG/DL (60-100); MAGNESIUM LEVEL 1.7 MG/DL (1.8-2.4); POTASSIUM SERUM 3.5 MMOL/L (3.5-5.1); SODIUM LEVEL 138 MMOL/L (136-145)
[2023-01-25] MEDS: ENOXAPARIN 40MG/0.4ML SYRINGE (J1650 PER 10MG) SC SCH (08:00)
[2023-01-25 14:00] VITALS: BP 160/100; TEMP 98.2; O2SAT 93
[2023-01-25 20:00] VITALS: BP 140/90; TEMP 97.9; O2SAT 94
[2023-01-25] MEDS: RAMELTEON 8 MG TAB (ROZEREM) PO PRN (21:42)
[2023-01-26] MEDS: IBUPROFEN 400MG TAB PO PRN ×3 (04:23→18:46)
[2023-01-26] MEDS: AMPICILLIN SOD/SULBACTAM SOD 3 GM in D5W MINI-BAG PLUS 100 ML IV SCH ×6 (05:17→23:58)
[2023-01-26 05:35] VITALS: BP 130/86; TEMP 98.2; O2SAT 96
[2023-01-26 07:13] LABS: BASO # 0.1 10^3/uL (0.0-0.2); BASO % 1.1 % (0.0-1.0); EOS # 0.9 10^3/uL (0.0-0.5); EOS % 10.8 % (0.0-3.0); HEMATOCRIT 31.2 % (42.0-52.0); LYMPH # 1.5 10^3/uL (1.5-5.0); LYMPH % 18.5 % (24.0-44.0); MEAN CORPUSCULAR HEMOGLOBIN 32.4 pg (27.0-33.0); MEAN CORPUSCULAR HGB CONC 35.3 g/dl (32.0-36.5); MEAN CORPUSCULAR VOLUME 91.8 fl (80.0-96.0); MONO # 0.6 10^3/uL (0.0-0.8); NEUTROPHILS # 4.8 10^3/uL (1.5-8.5); NEUTROPHILS % 61.1 % (36.0-66.0); PLATELET COUNT, AUTOMATED 169 10^3/uL (150-450); WHITE BLOOD COUNT 7.9 10^3/uL (4.0-10.0)
[2023-01-26 07:37] LABS: BLOOD UREA NITROGEN 9 MG/DL (9-23); CALCIUM LEVEL 8.5 MG/DL (8.5-10.1); CARBON DIOXIDE LEVEL 28 MMOL/L (20-31); CHLORIDE LEVEL 103 MMOL/L (98-107); CREATININE FOR GFR 0.72 MG/DL (0.70-1.30); GLOMERULAR FILTRATION RATE > 60.0 (>56); GLUCOSE, FASTING 108 MG/DL (60-100); MAGNESIUM LEVEL 1.7 MG/DL (1.8-2.4); POTASSIUM SERUM 3.5 MMOL/L (3.5-5.1); SODIUM LEVEL 139 MMOL/L (136-145)
[2023-01-26 08:02] LABS: ERYTHROCYTE SEDIMENTATION RATE 51 mm/hr (0-20)
[2023-01-26 08:13] LABS: PROCALCITONIN 0.19 ng/ml
[2023-01-26] MEDS: MAG SULF 1GM/100ML (MAG RUN) 1 GM in IV 1 EA IV SCH ×2 (08:57→08:59)
[2023-01-26] MEDS: ENOXAPARIN 40MG/0.4ML SYRINGE (J1650 PER 10MG) SC SCH (08:57)
[2023-01-26] MEDS: LACTOBACILLUS ACIDOPHILUS CAP (BACID) PO SCH ×2 (08:57→18:46)
[2023-01-26] MEDS: oxyCODONE 5MG TAB PO PRN (08:58)
[2023-01-26 14:00] VITALS: BP 150/97; TEMP 97.9; O2SAT 95
[2023-01-26] MEDS: RAMELTEON 8 MG TAB (ROZEREM) PO PRN (20:57)
[2023-01-26 21:47] VITALS: BP 99/66; TEMP 97.3; O2SAT 94
[2023-01-27] MEDS: IBUPROFEN 400MG TAB PO PRN (00:50)
[2023-01-27] MEDS: AMPICILLIN SOD/SULBACTAM SOD 3 GM in D5W MINI-BAG PLUS 100 ML IV SCH ×3 (05:18→17:34)
[2023-01-27 06:18] LABS: BASO # 0.1 10^3/uL (0.0-0.2); BASO % 1.1 % (0.0-1.0); EOS % 14.5 % (0.0-3.0); HEMATOCRIT 30.1 % (42.0-52.0); HEMOGLOBIN 10.4 g/dl (13.5-17.5); LYMPH # 1.5 10^3/uL (1.5-5.0); LYMPH % 22.8 % (24.0-44.0); MEAN CORPUSCULAR HGB CONC 34.6 g/dl (32.0-36.5); MEAN CORPUSCULAR VOLUME 92.6 fl (80.0-96.0); MONO # 0.7 10^3/uL (0.0-0.8); MONO % 9.9 % (2.0-8.0); NEUTROPHILS # 3.3 10^3/uL (1.5-8.5); NEUTROPHILS % 50.9 % (36.0-66.0); PLATELET COUNT, AUTOMATED 170 10^3/uL (150-450); RED BLOOD COUNT 3.25 10^6/uL (4.30-6.10); WHITE BLOOD COUNT 6.5 10^3/uL (4.0-10.0)
[2023-01-27 06:51] LABS: BLOOD UREA NITROGEN 14 MG/DL (9-23); CALCIUM LEVEL 7.8 MG/DL (8.5-10.1); CARBON DIOXIDE LEVEL 27 MMOL/L (20-31); CHLORIDE LEVEL 104 MMOL/L (98-107); CREATININE FOR GFR 0.74 MG/DL (0.70-1.30); GLOMERULAR FILTRATION RATE > 60.0 (>56); GLUCOSE, FASTING 136 MG/DL (60-100); MAGNESIUM LEVEL 1.8 MG/DL (1.8-2.4); POTASSIUM SERUM 3.1 MMOL/L (3.5-5.1); SODIUM LEVEL 137 MMOL/L (136-145)
[2023-01-27 07:00] VITALS: BP 129/62; TEMP 97.9; O2SAT 96
[2023-01-27] MEDS ORDERED: ACET1TAB55 PO (07:54)
[2023-01-27] MEDS ORDERED: IBUP-1114 PO (07:54)
[2023-01-27] MEDS ORDERED: RISATAB3 PO (07:54)
[2023-01-27] MEDS ORDERED: OXYC-517 PO (07:54)
[2023-01-27] MEDS ORDERED: RAME8TAB2 PO (07:54)
[2023-01-27] MEDS ORDERED: AMOX875T2 PO (07:55)
[2023-01-27] MEDS: ENOXAPARIN 40MG/0.4ML SYRINGE (J1650 PER 10MG) SC SCH (08:21)
[2023-01-27] MEDS: LACTOBACILLUS ACIDOPHILUS CAP (BACID) PO SCH ×2 (08:21→17:34)
[2023-01-27 21:13] VITALS: BP 136/92; TEMP 98; O2SAT 95
[2023-01-27] MEDS: oxyCODONE 5MG TAB PO PRN (21:50)
[2023-01-27] MEDS: RAMELTEON 8 MG TAB (ROZEREM) PO PRN (23:01)
[2023-01-28 06:13] LABS: BASO # 0.1 10^3/uL (0.0-0.2); EOS # 0.9 10^3/uL (0.0-0.5); EOS % 9.9 % (0.0-3.0); HEMATOCRIT 32.5 % (42.0-52.0); HEMOGLOBIN 11.2 g/dl (13.5-17.5); LYMPH # 2.1 10^3/uL (1.5-5.0); LYMPH % 23.3 % (24.0-44.0); MEAN CORPUSCULAR HGB CONC 34.5 g/dl (32.0-36.5); MEAN CORPUSCULAR VOLUME 92.9 fl (80.0-96.0); MONO % 11.1 % (2.0-8.0); NEUTROPHILS # 4.8 10^3/uL (1.5-8.5); NEUTROPHILS % 53.4 % (36.0-66.0); PLATELET COUNT, AUTOMATED 214 10^3/uL (150-450)
[2023-01-28 06:40] LABS: BLOOD UREA NITROGEN 14 MG/DL (9-23); CALCIUM LEVEL 8.1 MG/DL (8.5-10.1); CARBON DIOXIDE LEVEL 26 MMOL/L (20-31); CHLORIDE LEVEL 104 MMOL/L (98-107); CREATININE FOR GFR 0.79 MG/DL (0.70-1.30); GLOMERULAR FILTRATION RATE > 60.0 (>56); GLUCOSE, FASTING 98 MG/DL (60-100); MAGNESIUM LEVEL 1.9 MG/DL (1.8-2.4); POTASSIUM SERUM 3.8 MMOL/L (3.5-5.1); SODIUM LEVEL 138 MMOL/L (136-145)
[2023-01-28 07:10] VITALS: BP 133/89; TEMP 97.9; O2SAT 92
[2023-01-28] MEDS: LACTOBACILLUS ACIDOPHILUS CAP (BACID) PO SCH ×2 (09:27→17:42)
[2023-01-28] MEDS: IBUPROFEN 400MG TAB PO PRN (09:28)
[2023-01-28] MEDS: AUGMENTIN 875 MG TAB PO SCH ×2 (09:28→21:19)
[2023-01-28] MEDS: ENOXAPARIN 40MG/0.4ML SYRINGE (J1650 PER 10MG) SC SCH (09:29)
[2023-01-28] MEDS: oxyCODONE 5MG TAB PO PRN (21:22)
[2023-01-28] MEDS: RAMELTEON 8 MG TAB (ROZEREM) PO PRN (22:21)
[2023-01-29 06:29] VITALS: BP 129/84; TEMP 97.9; O2SAT 94
[2023-01-29 06:56] LABS: BASO # 0.1 10^3/uL (0.0-0.2); EOS # 0.9 10^3/uL (0.0-0.5); EOS % 9.7 % (0.0-3.0); HEMATOCRIT 32.5 % (42.0-52.0); HEMOGLOBIN 11.3 g/dl (13.5-17.5); LYMPH # 1.8 10^3/uL (1.5-5.0); LYMPH % 19.4 % (24.0-44.0); MEAN CORPUSCULAR HEMOGLOBIN 32.6 pg (27.0-33.0); MEAN CORPUSCULAR HGB CONC 34.8 g/dl (32.0-36.5); MEAN CORPUSCULAR VOLUME 93.7 fl (80.0-96.0); MONO % 10.5 % (2.0-8.0); NEUTROPHILS # 5.4 10^3/uL (1.5-8.5); PLATELET COUNT, AUTOMATED 227 10^3/uL (150-450); RED BLOOD COUNT 3.47 10^6/uL (4.30-6.10); WHITE BLOOD COUNT 9.4 10^3/uL (4.0-10.0)
[2023-01-29 07:24] LABS: BLOOD UREA NITROGEN 19 MG/DL (9-23); CALCIUM LEVEL 8.5 MG/DL (8.5-10.1); CARBON DIOXIDE LEVEL 25 MMOL/L (20-31); CHLORIDE LEVEL 107 MMOL/L (98-107); GLOMERULAR FILTRATION RATE > 60.0 (>56); GLUCOSE, FASTING 100 MG/DL (60-100); MAGNESIUM LEVEL 1.9 MG/DL (1.8-2.4); POTASSIUM SERUM 4.1 MMOL/L (3.5-5.1); SODIUM LEVEL 140 MMOL/L (136-145)
[2023-01-29] MEDS: AUGMENTIN 875 MG TAB PO SCH ×2 (10:22→21:41)
[2023-01-29] MEDS: LACTOBACILLUS ACIDOPHILUS CAP (BACID) PO SCH ×2 (10:23→17:25)
[2023-01-29] MEDS: ENOXAPARIN 40MG/0.4ML SYRINGE (J1650 PER 10MG) SC SCH (10:23)
[2023-01-29] MEDS: oxyCODONE 5MG TAB PO PRN (21:42)
[2023-01-29] MEDS: RAMELTEON 8 MG TAB (ROZEREM) PO PRN (22:33)
[2023-01-30 06:01] VITALS: BP 125/84; TEMP 97.9; O2SAT 97
[2023-01-30 07:33] LABS: BASO # 0.1 10^3/uL (0.0-0.2); EOS # 0.9 10^3/uL (0.0-0.5); EOS % 8.9 % (0.0-3.0); HEMATOCRIT 34.4 % (42.0-52.0); HEMOGLOBIN 11.7 g/dl (13.5-17.5); LYMPH # 2.1 10^3/uL (1.5-5.0); LYMPH % 21.3 % (24.0-44.0); MEAN CORPUSCULAR HEMOGLOBIN 32.2 pg (27.0-33.0); MEAN CORPUSCULAR VOLUME 94.8 fl (80.0-96.0); NEUTROPHILS # 5.5 10^3/uL (1.5-8.5); NEUTROPHILS % 56.3 % (36.0-66.0); PLATELET COUNT, AUTOMATED 264 10^3/uL (150-450); RED BLOOD COUNT 3.63 10^6/uL (4.30-6.10); WHITE BLOOD COUNT 9.7 10^3/uL (4.0-10.0)
[2023-01-30 08:04] LABS: BLOOD UREA NITROGEN 16 MG/DL (9-23); CALCIUM LEVEL 8.6 MG/DL (8.5-10.1); CARBON DIOXIDE LEVEL 26 MMOL/L (20-31); CHLORIDE LEVEL 104 MMOL/L (98-107); CREATININE FOR GFR 0.77 MG/DL (0.70-1.30); GLOMERULAR FILTRATION RATE > 60.0 (>56); GLUCOSE, FASTING 102 MG/DL (60-100); POTASSIUM SERUM 3.9 MMOL/L (3.5-5.1); SODIUM LEVEL 137 MMOL/L (136-145)
[2023-01-30] MEDS: LACTOBACILLUS ACIDOPHILUS CAP (BACID) PO SCH ×2 (09:04→17:51)
[2023-01-30] MEDS: AUGMENTIN 875 MG TAB PO SCH ×2 (09:04→21:22)
[2023-01-30] MEDS: ENOXAPARIN 40MG/0.4ML SYRINGE (J1650 PER 10MG) SC SCH (09:04)
[2023-01-30] MEDS: oxyCODONE 5MG TAB PO PRN (21:23)
[2023-01-30] MEDS: RAMELTEON 8 MG TAB (ROZEREM) PO PRN (22:17)
[2023-01-31 05:28] VITALS: BP 115/80; TEMP 97.7; O2SAT 98
[2023-01-31] MEDS: LACTOBACILLUS ACIDOPHILUS CAP (BACID) PO SCH ×2 (08:19→17:44)
[2023-01-31] MEDS: AUGMENTIN 875 MG TAB PO SCH ×2 (08:19→21:10)
[2023-01-31] MEDS: ENOXAPARIN 40MG/0.4ML SYRINGE (J1650 PER 10MG) SC SCH (08:20)
[2023-01-31] MEDS: oxyCODONE 5MG TAB PO PRN (21:10)
[2023-01-31] MEDS: RAMELTEON 8 MG TAB (ROZEREM) PO PRN (22:03)
[2023-02-01 05:27] VITALS: BP 116/79; TEMP 97.7; O2SAT 93
[2023-02-01] MEDS: LACTOBACILLUS ACIDOPHILUS CAP (BACID) PO SCH (07:44)
[2023-02-01] MEDS: ENOXAPARIN 40MG/0.4ML SYRINGE (J1650 PER 10MG) SC SCH (07:44)
[2023-02-01] MEDS: AUGMENTIN 875 MG TAB PO SCH (07:44)
[2023-02-01] MEDS ORDERED: ASPIRIN 325 MG TAB PO SCH (09:00)
[2023-02-01] MEDS ORDERED: ASPI-1 PO (11:35)
[2023-02-01] MEDS ORDERED: AUGMENTIN 875 MG TAB PO ONE (13:00)
== END 2023-02-01 14:20 | disposition home or self-care (01) ==
LOC: M ED 12:50 → EDBD 12:50 → M SDC 17:17 → INTOOBSV 01-23 03:01 → M ED INP 01-23 03:01 → M MS5PR 01-23 03:36
PROVIDERS: ADMIT Internal Medicine; ATTEND Family Medicine
DX: S91.051A Open bite, right ankle, initial encounter (principal); S91.052A Open bite, left ankle, initial encounter; S81.851A Open bite, right lower leg, initial encounter; S81.852A Open bite, left lower leg, initial encounter; S51.851A Open bite of right forearm, initial encounter; S51.852A Open bite of left forearm, initial encounter; S96.812A Strain of other specified muscles and tendons at ankle and foot level, left foot, initial encounter; W54.0XXA Bitten by dog, initial encounter; Y92.098 Other place in other non-institutional residence as the place of occurrence of the external cause; E83.42 Hypomagnesemia; E83.118 Other hemochromatosis; Z96.643 Presence of artificial hip joint, bilateral
CPT/HCPCS: 12001; 12032; 12034; 12041; 13121; 13122; 27625; 27658; 36415; 73090; 73590; 73620; 80048; 80053; 82728; 83036; 83550; 83605; 83735; 84100; 84145; 85025; 85652; 86140; 87040; 87631; 87641; 90715; 97110; 97116; 97161; 97165; 97530; 97535; 97542; 99285; G0378; J0131; J0295; J0690; J1100; J1170; J1650; J1815; J1885; J2250; J2405; J2765; J3010; J3475

== ENCOUNTER → 2023-03-03 | Outpatient (REF) | payer OTHER ==
[~2023-03-03] MED LIST changes: +ACET1TAB55 PO; +AMOX875T2 PO; +ASPI-1 PO; +IBUP-1114 PO; +RAME8TAB2 PO; +RISATAB3 PO
== END ==
LOC: M LAB REF 16:54
PROVIDERS: ATTEND Orthopaedic Surgery
DX: S81.802A Unspecified open wound, left lower leg, initial encounter (principal); W18.30XA Fall on same level, unspecified, initial encounter; Y92.009 Unspecified place in unspecified non-institutional (private) residence as the place of occurrence of the external cause

== ENCOUNTER 2023-03-04 20:08 | Observation (INO) | payer OTHER ==
[~2023-03-04] VITALS: Ht 180.3 cm; Wt 82.8 kg
[2023-03-05] MEDS ORDERED: HOME MED LIST COMPLETE! XX SCH (00:10)
[2023-03-05 00:30] LABS: BASO # 0.1 10^3/uL (0.0-0.2); BASO % 1.2 % (0.0-1.0); EOS # 0.9 10^3/uL (0.0-0.5); EOS % 9.4 % (0.0-3.0); HEMATOCRIT 41.7 % (42.0-52.0); HEMOGLOBIN 14.8 g/dl (13.5-17.5); LYMPH # 3.5 10^3/uL (1.5-5.0); LYMPH % 35.5 % (24.0-44.0); MEAN CORPUSCULAR HEMOGLOBIN 33.6 pg (27.0-33.0); MEAN CORPUSCULAR HGB CONC 35.5 g/dl (32.0-36.5); MEAN CORPUSCULAR VOLUME 94.6 fl (80.0-96.0); MONO # 0.9 10^3/uL (0.0-0.8); MONO % 9.5 % (2.0-8.0); NEUTROPHILS # 4.4 10^3/uL (1.5-8.5); NEUTROPHILS % 44.2 % (36.0-66.0); PLATELET COUNT, AUTOMATED 216 10^3/uL (150-450); RED BLOOD COUNT 4.41 10^6/uL (4.30-6.10); WHITE BLOOD COUNT 9.9 10^3/uL (4.0-10.0)
[2023-03-05 00:50] LABS: ERYTHROCYTE SEDIMENTATION RATE 11 mm/hr (0-20)
[2023-03-05 00:54] LABS: C REACTIVE PROTEIN QUANTITATIV < 0.40 MG/DL (<1.0)
[2023-03-05 00:55] LABS: BLOOD UREA NITROGEN 15 MG/DL (9-23); CALCIUM LEVEL 9.1 MG/DL (8.5-10.1); CARBON DIOXIDE LEVEL 24 MMOL/L (20-31); CHLORIDE LEVEL 106 MMOL/L (98-107); CREATININE FOR GFR 0.82 MG/DL (0.70-1.30); GLOMERULAR FILTRATION RATE > 60.0 (>56); GLUCOSE, FASTING 100 MG/DL (60-100); POTASSIUM SERUM 4.1 MMOL/L (3.5-5.1); SODIUM LEVEL 139 MMOL/L (136-145)
[2023-03-05] MEDS ORDERED: NORCO, ANEXSIA 5/325MG TABLET (HYDROcodone/ACETAMINOPHEN) PO PRN (01:10)
[2023-03-05] MEDS ORDERED: ACETAMINOPHEN TAB 650MG DOSE (2X325MG) PO PRN (01:10)
[2023-03-05] MEDS ORDERED: ONDANSETRON 4MG ORAL DISINTEGRATING TAB PO PRN (01:10)
[2023-03-05 01:18] LABS: RSV AMPLIFICATION NEGATIVE (NEGATIVE)
[2023-03-05 05:57] VITALS: BP 111/76; TEMP 98; O2SAT 95
[2023-03-05 14:00] VITALS: BP 142/79; TEMP 97.1; O2SAT 99
[2023-03-05] MEDS ORDERED: PROHANCE 279.3MG/ML 15ML VIAL As Ordered ONE (14:47)
[2023-03-05] MEDS ORDERED: AMOX875T2 PO (16:39)
== END 2023-03-05 17:05 | disposition home or self-care (01) ==
LOC: M ED 20:08 → M ED INP 20:09 → M MS4PR 03-05 03:10
PROVIDERS: ADMIT Internal Medicine; ATTEND Internal Medicine
DX: L03.116 Cellulitis of left lower limb (principal)
CPT/HCPCS: 73723; 80048; 85025; 85652; 86140; 87040; 87631; 99284; A9576